=== PATIENT | female | born 1960 | race African-American/Black ===

== ENCOUNTER 2018-05-22 17:58 | Emergency (ER) | payer MEDICAID ==
[~2018-05-22] VITALS: Ht 160 cm; Wt 71.5 kg
[2018-05-22] MEDS ORDERED: AMLO10TA80 MT (19:02)
[2018-05-22] MEDS ORDERED: FLUO-123 PO (19:02)
[2018-05-22] MEDS ORDERED: IBUPROFEN 600MG TABLET PO ONE (21:00)
[2018-05-22] MEDS ORDERED: ACETAMINOPHEN WITH CODEINE 300/30MG TABLET PO ONE (21:00)
[2018-05-22 22:33] VITALS: BP 129/90
== END 2018-05-22 22:36 | disposition home or self-care (01) ==
LOC: ER 18:35
DX: S21.002A Unspecified open wound of left breast, initial encounter (principal); X58.XXXA Exposure to other specified factors, initial encounter; Y93.E1 Activity, personal bathing and showering; Y92.012 Bathroom of single-family (private) house as the place of occurrence of the external cause; Z98.890 Other specified postprocedural states
CPT/HCPCS: 99283